=== PATIENT | male | born 1980 | race Caucasian/White ===

== ENCOUNTER → 2019-12-28 08:22 | Outpatient (CLI) | payer BC, SELFPAY ==
[2019-12-28 10:20] LABS: Absolute Lymphocyte Count 1.31 X10^3/uL (0.83-4.51); Absolute Neutrophil Count 2.2 X10^3/uL (2.0-7.7); Basophil# 0.03 X10^3/uL; Basophil% 0.7 % (0-1); Eosinophils% 2.3 % (0-5); Hematocrit 45.5 % (40-54); Lymphocyte # 1.31 X10^3/ul (4.0); Lymphocyte % 30.8 % (19-41); Mean Corpuscular Hgb 30.6 pg (27.0-32.0); Mean Corpuscular Volume 92.9 fL (80-94); Mean Platelet Vol. 10.6 fl (6.2-12.0); Monocyte% 14.1 % (0-10); NRBC Flagged by Analyzer 0 % (0-5); Neutrophil # 2.22 X10^3/uL (2.7-7.7); Neutrophil % 52.1 % (47-70); Platelet Count 255 K/mm3 (150-450); RBC Distribution Width CV 13.2 % (11.6-14.6); RBC Distribution Width SD 44.7 fl (35.1-43.9); White Blood Count 4.3 K/mm3 (4.4-11.0)
[2019-12-28 11:06] LABS: AST(SGOT) 20 U/L (15-37); Alanine Aminotransfer ALT/SGPT 31 U/L (16-61); Albumin, Serum 3.8 g/dL (3.2-5.0); Alkaline Phosphatase 75 U/L (45-117); Anion Gap 4 (5-15); BUN 28 mg/dL (7-18); BUN/Creat Ratio 33.8 RATIO (10-20); Calcium,Total 9.1 mg/dL (8.5-10.1); Chloride 105 mmol/L (98-107); Creatinine, Serum 0.83 mg/dL (0.70-1.30); EST Glomerular Filtration Rate 110 mL/min (>60); Est Glom Filt Rate - Afr Amer 133 mL/min (>60); Glucose 81 mg/dL (74-106); Protein, Total 7.8 g/dL (6.4-8.2); Sodium Level 140 mmol/L (136-145); Thyroid Stim Hormone (TSH) 1.11 uIU/mL (0.358-3.74)
[2020-01-01 13:53] LABS: Testosterone Free 11.4 pg/mL (8.7-25.1)
== END ==
PROVIDERS: PCP Nurse Practitioner; Referring Provider Nurse Practitioner; Visit Provider Nurse Practitioner
DX: F32.9 Major depressive disorder, single episode, unspecified (principal); R68.82 Decreased libido
CPT/HCPCS: 36415; 80053; 84402; 84443; 85025

== ENCOUNTER → 2020-11-26 09:00 | Outpatient (CLI) | payer BC, SELFPAY ==
--- NOTE | 2020-11-26 09:02 | US_ITS ---
PROCEDURES: TRANSRECTAL ULTRASOUND GUIDED - PROSTATE REASON FOR EXAM: Male, 40 years old. URINARY RETENTION TECHNIQUE: Ultrasound evaluation of the prostate was performed with real-time and static chacko-scale imaging. BIOPSY: No biopsy was performed. Cleansing enema: Yes COMPARISON: None. FINDINGS: PSA: Prostate Volume: 23 cm3 The peripheral zone glandular tissue appears normal without evidence of nodules or lesions. The transitional zone glandular tissue appears normal without evidence of nodules or lesions. The seminal vesicles appear normal without evidence of nodules or lesions. Imaging was performed immediately following patient voiding. There is no visualized urinary residual. US/Prostate IMPRESSION: 1. Normal appearing prostate. 2. No evidence of urinary bladder residual. Electronically Signed: Quique Machuca DO at 19:14 EST Tel [phone], Service support ,
== END ==
PROVIDERS: PCP Nurse Practitioner; Referring Provider Nurse Practitioner; Visit Provider Nurse Practitioner
DX: R33.9 Retention of urine, unspecified (principal)
CPT/HCPCS: 76872

== ENCOUNTER → 2022-07-19 | Outpatient (CLI) | payer BC, SELFPAY ==
[2022-07-19 18:14] LABS: Absolute Lymphocyte Count 1.48 X10^3/uL (0.83-4.51); Absolute Neutrophil Count 4.5 X10^3/uL (2.0-7.7); Basophil# 0.05 X10^3/uL; Basophil% 0.7 % (0-1); Eosinophil# 0.23 X10^3/uL; Eosinophils% 3.2 % (0-5); Hematocrit 36.3 % (40-54); Hemoglobin 11.1 g/dL (13.0-16.5); Lymphocyte # 1.48 X10^3/ul (0.83-4.51); Lymphocyte % 20.6 % (19-41); Mean Corp Hgb Conc 30.6 g/dL (32-36); Mean Corpuscular Hgb 23.7 pg (27.0-32.0); Mean Corpuscular Volume 77.6 fL (80-94); Mean Platelet Vol. 11.3 fl (6.2-12.0); Monocyte# 0.87 X10^3/uL; Monocyte% 12.1 % (0-10); NRBC Flagged by Analyzer 0 % (0-5); Neutrophil # 4.53 X10^3/uL (2.7-7.7); Neutrophil % 63.3 % (47-70); Platelet Count 314 K/mm3 (150-450); RBC Distribution Width CV 18.6 % (11.6-14.6); RBC Distribution Width SD 50.5 fl (35.1-43.9); Red Blood Count 4.68 M/mm3 (4.6-6.2); White Blood Count 7.2 K/mm3 (4.4-11.0)
[2022-07-19 18:28] LABS: Vitamin D,25 Hydroxy 36.4 ng/mL
[2022-07-19 18:38] LABS: ALB/GLOB Ratio 0.8 RATIO (0.9-2.4); AST(SGOT) 19 U/L (15-37); Alanine Aminotransfer ALT/SGPT 27 U/L (16-61); Albumin, Serum 3.7 g/dL (3.2-5.0); Alkaline Phosphatase 64 U/L (45-117); Anion Gap 7 (5-15); BUN 28 mg/dL (7-18); BUN/Creat Ratio 30.9 RATIO (10-20); Calcium,Total 8.8 mg/dL (8.5-10.1); Chloride 102 mmol/L (98-107); Creatinine, Serum 0.91 mg/dL (0.70-1.30); EST Glomerular Filtration Rate 98 mL/min (>60); Est Glom Filt Rate - Afr Amer 119 mL/min (>60); Globulin 4.4 g/dL (2.2-4.2); Glucose 86 mg/dL (74-106); Potassium 4.1 mmol/L (3.5-5.1); Protein, Total 8.1 g/dL (6.4-8.2); Sodium Level 136 mmol/L (136-145)
== END | disposition home or self-care (01) ==
LOC: MTLAB 16:16
PROVIDERS: PCP Nurse Practitioner Family; Referring Provider Nurse Practitioner Family; Visit Provider Nurse Practitioner Family
DX: E55.9 Vitamin D deficiency, unspecified (principal); R42 Dizziness and giddiness
CPT/HCPCS: 36415; 80053; 82306; 84443; 85025

== ENCOUNTER → 2022-08-11 | Outpatient (CLI) | payer BC, SELFPAY ==
--- NOTE | 2022-08-11 14:51 | ECHOD_ITS ---
Reason For Study: SYNCOPE Procedure This was a 2D Doppler, Color Flow transthoracic echocardiogram. The study was technically difficult. Exam performed in department. Left Ventricle Normal LV size. Left ventricular systolic function is normal. The estimated ejection fraction is 65 %. No evidence for diastolic dysfunction. No regional wall motion abnormalities noted. Right Ventricle Normal RV size. Normal systolic function. Atria Normal left atrium. Normal right atrium. No doppler evidence for ASD. Mitral Valve There is no mitral annular calcification. Normal mitral valve. Trivial eccentric mitral valve insufficiency. Tricuspid Valve Normal tricuspid valve. Trivial tricuspid valve insufficiency. Unable to estimate RV systolic pressure/pulmonary artery pressure due to technically difficult study. Aortic Valve Trisinus/trileaflet aortic valve. Normal aortic valve. Pulmonic Valve The pulmonic valve is not well visualized. Trivial pulmonic valve insufficiency. Great Vessels Normal sized aortic root. Pericardium/Pleural No pericardial effusion. MMode/2D Measurements & Calculations LVIDd: 5.1 cm IVSd: 0.68 cm Ao root diam: 2.9 cm LVIDs: 3.1 cm LVPWd: 0.61 cm RVDd: 3.0 cm FS: 38.5 % LAV(MOD-bp): 59.3 ml LVAd ap4: 23.2 cm2 SV(MOD-sp4): 37.0 ml LAV(MOD-bp) Indexed: 33.5 ml/m2 LVLd ap4: 7.5 cm LAV(MOD-sp2): 76.4 ml EDV(MOD-sp4): 60.7 ml LAV(MOD-sp4): 40.7 ml EDV(sp4-el): 60.7 ml LVAs ap4: 12.8 cm2 LVLs ap4: 6.4 cm ESV(MOD-sp4): 23.7 ml ESV(sp4-el): 21.7 ml EF(MOD-sp4): 60.9 % EF(sp4-el): 64.2 % SV(sp4-el): 39.0 ml LA A4 area: 16.0 cm2 LA dimension(2D): 3.1 cm RA A4 area: 19.6 cm2 Time Measurements MV dec time: 0.24 sec Doppler Measurements & Calculations MV E max abel: 75.2 cm/sec Lat Peak E' Abel: 16.2 cm/sec Med Peak E' Abel: 17.0 cm/sec MV A max abel: 59.1 cm/sec E/E' lat: 4.6 E/E' med: 4.4 MV E/A: 1.3 MV V2 max: 89.5 cm/sec Ao V2 max: 135.6 cm/sec MV max P.2 mmHg MV dec slope: 324.9 cm/sec2 Ao max P.4 mmHg MV V2 mean: 39.5 cm/sec Ao V2 mean: 97.9 cm/sec MV mean P.89 mmHg Ao mean P.3 mmHg MV V2 VTI: 19.3 cm Ao V2 VTI: 30.5 cm LV V1 max: 113.6 cm/sec PA V2 max: 88.1 cm/sec LV V1 max P.2 mmHg PA V2 mean: 60.4 cm/sec ECHO/Echo Complete Interpretation Summary The study was technically difficult. Left ventricular systolic function is normal. The estimated ejection fraction is 65 %. Trivial eccentric mitral valve insufficiency. Trivial tricuspid valve insufficiency. Trivial pulmonic valve insufficiency. Unable to estimate RV systolic pressure/pulmonary artery pressure due to techni matty difficult study. No evidence for diastolic dysfunction. Ordering Physician: Madeline Mejia Performed By: Brina Burk RCS
== END | disposition home or self-care (01) ==
LOC: CVS 14:43
PROVIDERS: PCP Nurse Practitioner Family; Visit Provider Nurse Practitioner Family
DX: I45.10 Unspecified right bundle-branch block (principal); R42 Dizziness and giddiness; R55 Syncope and collapse
CPT/HCPCS: 93306

== ENCOUNTER → 2023-03-21 | Outpatient (CLI) | payer BC, SELFPAY ==
--- NOTE | 2023-03-21 16:10 | RAD_ITS ---
INDICATION: FOOT PAIN increasing pain right dorsal foot, lateral aspect EXAMINATION/TECHNIQUE: X-RAY - RIGHT XR Foot Min 3 Views 3 VIEWS COMPARISON: FINDINGS: BONES: No fracture demonstrated. Small plantar calcaneal spur, and a smaller spur at the posterior Achilles insertion site. JOINTS: No dislocation. SOFT TISSUES: Unremarkable. RAD/Foot min 3 Views IMPRESSION: No evidence of fracture. Calcaneal spurs. Electronically Signed: Ana Wilkinson MD at 8:03 EDT ,
== END | disposition home or self-care (01) ==
PROVIDERS: PCP Nurse Practitioner Family; Referring Provider Nurse Practitioner Family; Visit Provider Nurse Practitioner Family
DX: M79.671 Pain in right foot (principal)
CPT/HCPCS: 73630

== ENCOUNTER → 2025-09-01 | Outpatient (CLI) | payer BC, SELFPAY ==
[2025-09-01 18:57] LABS: Hematocrit 40.0 % (40-54); Hemoglobin 14.2 g/dL (13.0-16.5); Immature Granulocytes Count 0.010 X10^3/uL (0.0-0.0); Mean Corp Hgb Conc 35.5 g/dL (32-36); Mean Corpuscular Volume 90.1 fL (80-94); Mean Platelet Vol. 11.4 fl (6.2-12.0); NRBC Flagged by Analyzer 0 % (0-5); Platelet Count 261 K/mm3 (150-450); RBC Distribution Width CV 12.7 % (11.6-14.6); RBC Distribution Width SD 42.3 fl (35.1-43.9); Red Blood Count 4.44 M/mm3 (4.6-6.2); White Blood Count 6.7 K/mm3 (4.4-11.0)
[2025-09-01 19:31] LABS: FOLATES,SERUM (FOLIC ACID) 14.60 ng/mL (4.60-34.80)
[2025-09-01 19:48] LABS: Color, Urine Yellow (Yellow); Glucose, Dipstick Normal (Normal); Ketone-Dipstick Negative (Negative); Leukocyte Esterase-Dipstick Negative /ul (Negative); Nitrite-Dipstick Negative (Negative); Occult Blood-Urine Negative /ul (Negative); Protein-Dipstick 15 mg/dl (Negative); Specific Gravity, Urine 1.025 (1.002-1.030); Urine Bilirubin Dipstick Negative (Negative)
[2025-09-01 21:45] LABS: AST(SGOT) 25 U/L (<=37); Alanine Aminotransfer ALT/SGPT 23 U/L (<=46); Albumin, Serum 4.5 g/dL (3.5-5.0); Alkaline Phosphatase 72 U/L (40-129); Anion Gap 13 (5-15); BUN 29 mg/dL (4-19); BUN/Creat Ratio 37.9 RATIO (10-20); Calcium,Total 9.4 mg/dL (7.6-11.0); Carbon Dioxide 23.4 mmol/L (21.0-32.0); Chloride 103 mmol/L (98-108); Ferritin 15 ng/mL (37-417); Globulin 3.1 g/dL (2.2-4.2); Glucose 84 mg/dL (70-99); Potassium 4.1 mmol/L (3.3-5.1); Vitamin B12 1233 pg/mL (180-914)
[2025-09-01 22:04] LABS: Iron 73 ug/dL (65-175); Iron Binding Capacity,Total 404 ug/dL (250-450); Iron Binding Capacity,Unsat 331 ug/dL (228-428)
[2025-09-05 12:08] LABS: Vitamin D 1,25-Dihydroxy 57.4 pg/mL (24.8-81.5)
== END | disposition home or self-care (01) ==
LOC: MTLAB 15:42
PROVIDERS: PCP Nurse Practitioner Family; Referring Provider Nurse Practitioner Family; Visit Provider Nurse Practitioner Family
DX: D50.9 Iron deficiency anemia, unspecified (principal); E55.9 Vitamin D deficiency, unspecified; F41.9 Anxiety disorder, unspecified; R35.1 Nocturia
CPT/HCPCS: 36415; 80053; 81002; 82607; 82652; 82728; 82746; 83540; 83550; 84443; 85025